=== PATIENT | female | born 1960 | race Caucasian/White ===

== ENCOUNTER 2016-10-02 15:16 | Emergency (ER) | payer OTHER ==
[~2016-10-02] VITALS: Ht 149.9 cm; Wt 90.3 kg
[~2016-10-02 15:16] MED LIST: ASPIRIN325 MG PO; BENADRYL25 MG PO; CARAFATE100 MG/ML PO; CEFTIN500 MG PO; CIPRO500 MG PO; CIPROFLOXACIN500 M1 PO; DEXAMETHASONE4 MG PO; ENDOCET 5-3251 EACH PO; ERGOCALCIF50000 UNIT PO; HYDROCODON-ACE1 EAC7 PO; IBUPROFEN400 MG PO; LIPITOR10 MG PO; Levaquin PO; Levothroid,Synthroid PO; NAPROXEN500 MG PO; NORCO 5/3251 TABLET PO; PEPCID20 MG PO; PHENTERMINE HCL15 MG PO; PRAVASTATIN SOD40 MG PO; PREDNISONE20 MG PO; PROTONIX40 MG PO; Phenergan PO; REGLAN10 MG PO; SYNTHROID112 MCG PO; SYNTHROID150 MCG PO; TOPROL XL25 MG PO; ULTRAM50 MG PO; Valium PO; ZOFRAN ODT4 MG PO
[2016-10-02 15:50] LABS: HEMATOCRIT 41.1 % (36.0-46.0); MCH 27.9 PG (29.0-34.0); MCHC 33.1 G/DL (30.0-36.0); MCV 84.4 FL (83-99); MEAN PLAT.VOLUME 9.9 uM^3 (9.5-12.4); PLATELET COUNT 259 K/uL (156-360); RBC DIS.WIDTH-CV 13.9 % (11.8-14.6); RBC DIS.WIDTH-SD 42.4 % (39-53); RED BLOOD COUNT 4.87 M/uL (3.80-5.20); WHITE BLOOD COUNT 8.8 K/uL (4.1-10.2)
[2016-10-02 16:01] LABS: CHLORIDE 108 mEq/L (99-109); POTASSIUM 4.4 mEq/L (3.7-5.4); SODIUM 138 mEq/L (136-147)
[2016-10-02 16:03] LABS: GLUCOSE 97 mg/dL (70-99)
[2016-10-02 16:04] LABS: ANION GAP 9 MEQ/L (2-14)
[2016-10-02 16:05] LABS: TOTAL BILIRUBIN 0.3 mg/dL (0.0-1.0)
[2016-10-02 16:07] LABS: ALKALINE PHOSPHATASE 137 IU/L (3-129); GFR ESTIMATE (CALCULATED) > 59 mL/min/
[2016-10-02 16:08] LABS: UREA NITROGEN (BUN) 12 mg/dL (9-23)
[2016-10-02 16:54] LABS: ADD MIUA? YES; BILIRUBIN NEGATIVE; BLOOD NEGATIVE; COLOR YELLOW ((YELLOW)); GLUCOSE (STRIP) NEGATIVE; KETONES NEGATIVE; LEUKOCYTES LARGE; NITRITE NEGATIVE; PH, URINE 7.5 (5-8); PROTEIN (STRIP) TRACE; SPECIFIC GRAVITY 1.024 (1.000-1.030); UROBILINOGEN 0.2 MG/DL (0.2-1.0)
[2016-10-02 17:18] LABS: AMORPHOUS PHOSPHATE CRYSTALS 4+; BACTERIA NONE SEEN; CASTS NONE SEEN /LPF; CRYSTALS PRESENT; EPITHELIAL CELLS 1+; MUCUS NONE SEEN; RED BLOOD CELLS 0-5 /HPF (0-5); UCUL ADDED? NO; WHITE BLOOD CELLS 40-50 /HPF (0-5)
[2016-10-02] MEDS ORDERED: CARAFATE1 GM PO (20:03)
[2016-10-02] MEDS ORDERED: ZOFRAN4 MG PO (20:03)
[2016-10-02 20:11] VITALS: BP 150/86
== END 2016-10-02 20:22 | disposition home or self-care (01) ==
LOC: EME 15:16 → EXP 15:16
DX: R10.9 Unspecified abdominal pain (principal); R11.10 Vomiting, unspecified; E03.9 Hypothyroidism, unspecified; Z85.118 Personal history of other malignant neoplasm of bronchus and lung; Z87.891 Personal history of nicotine dependence
CPT/HCPCS: 74177; 80053; 81003; 85027; 99281; 99285; J2405; J2765; J3010; J7030

== ENCOUNTER 2016-11-23 19:50 | Emergency (ER) | payer OTHER ==
[~2016-11-23] VITALS: Ht 149.9 cm; Wt 89.7 kg
[~2016-11-23 19:50] MED LIST changes: +CARAFATE1 GM PO; +ZOFRAN4 MG PO
[2016-11-23] MEDS ORDERED: FIORICET 50-301 EACH PO (23:26)
[2016-11-23 23:31] VITALS: BP 118/80
== END 2016-11-23 23:49 | disposition home or self-care (01) ==
LOC: EME 19:50
DX: S06.0X0A Concussion without loss of consciousness, initial encounter (principal); M54.2 Cervicalgia; W20.8XXA Other cause of strike by thrown, projected or falling object, initial encounter; Y99.0 Civilian activity done for income or pay; E03.9 Hypothyroidism, unspecified; Z87.891 Personal history of nicotine dependence
CPT/HCPCS: 70450; 72125; 99281; 99284

== ENCOUNTER 2017-04-25 15:42 | Emergency (ER) | payer OTHER ==
[~2017-04-25] VITALS: Ht 149.9 cm; Wt 83.6 kg
[~2017-04-25 15:42] MED LIST changes: +FIORICET 50-301 EACH PO
[2017-04-25 16:21] LABS: ADD MIUA? YES; BILIRUBIN NEGATIVE; BLOOD NEGATIVE; COLOR STRAW ((YELLOW)); GLUCOSE (STRIP) NEGATIVE; KETONES NEGATIVE; LEUKOCYTES TRACE; NITRITE NEGATIVE; PROTEIN (STRIP) NEGATIVE; SPECIFIC GRAVITY 1.009 (1.000-1.030); UROBILINOGEN 0.2 MG/DL (0.2-1.0)
[2017-04-25 16:23] LABS: BACTERIA NONE SEEN /HPF; EPITHELIAL CELLS RARE /HPF; MUCUS TRACE /LPF; RED BLOOD CELLS NONE SEEN /HPF (0-5); UCUL ADDED? NO; WHITE BLOOD CELLS 0-5 /HPF (0-5)
[2017-04-25 17:24] LABS: EOSINOPHIL (%) 1.7 % (0-5); EOSINOPHIL COUNT 0.2 K/uL (0-0.3); HEMATOCRIT 40.3 % (36.0-46.0); IMMATURE GRANULOCYTE (%) 0.5 % (0.0-0.7); IMMATURE GRANULOCYTE COUNT 0.1 K/uL; INSTRUMENT ABS NEUTROPHIL CT 5.9 K/uL; LYMPHOCYTE COUNT 2.4 K/uL (1.0-2.8); MCH 29.4 PG (29.0-34.0); MCHC 33.5 G/DL (30.0-36.0); MCV 87.8 FL (83-99); MEAN PLAT.VOLUME 10.1 uM^3 (9.5-12.4); MONOCYTE (%) 7.8 % (3-12); MONOCYTE COUNT 0.7 K/uL (0-0.8); NEUTROPHIL (%) 64.1 % (45-76); NEUTROPHIL COUNT 5.9 K/uL (1.8-6.4); PLATELET COUNT 271 K/uL (156-360); RBC DIS.WIDTH-CV 13.2 % (11.8-14.6); RBC DIS.WIDTH-SD 42.8 % (39-53); RED BLOOD COUNT 4.59 M/uL (3.80-5.20); WHITE BLOOD COUNT 9.2 K/uL (4.1-10.2)
[2017-04-25 17:34] LABS: CHLORIDE 104 mEq/L (99-109); POTASSIUM 4.3 mEq/L (3.7-5.4); SODIUM 138 mEq/L (136-147)
[2017-04-25 17:36] LABS: GLUCOSE 102 mg/dL (70-99)
[2017-04-25 17:37] LABS: ANION GAP 9 MEQ/L (2-14)
[2017-04-25 17:39] LABS: GFR ESTIMATE (CALCULATED) > 59 mL/min/
[2017-04-25 17:40] LABS: UREA NITROGEN (BUN) 16 mg/dL (9-23)
[2017-04-25] MEDS ORDERED: LISINOPRIL20 MG PO ×2 (18:07→18:08)
[2017-04-25] MEDS ORDERED: CIPRO500 MG PO (18:47)
[2017-04-25] MEDS ORDERED: FLAGYL500 MG PO (18:47)
[2017-04-25] MEDS ORDERED: NORCO 5/3251 TABLET PO (18:47)
[2017-04-25 19:00] VITALS: BP 105/75
== END 2017-04-25 19:01 | disposition home or self-care (01) ==
LOC: EME 15:42
PROVIDERS: Physician Assistant
DX: K57.32 Diverticulitis of large intestine without perforation or abscess without bleeding (principal); E03.9 Hypothyroidism, unspecified; Z85.118 Personal history of other malignant neoplasm of bronchus and lung; Z90.710 Acquired absence of both cervix and uterus; Z87.891 Personal history of nicotine dependence
CPT/HCPCS: 74177; 80048; 81003; 85025; 99281; 99284; J7040

== ENCOUNTER 2017-09-20 19:11 | Inpatient (IN) | payer OTHER ==
[~2017-09-20] VITALS: Ht 149.9 cm; Wt 90.2 kg
[~2017-09-20 19:11] MED LIST changes: +FLAGYL500 MG PO; +LISINOPRIL20 MG PO
[2017-09-20 19:43] LABS: HEMATOCRIT 42.3 % (36.0-46.0); HEMOGLOBIN 14.4 G/DL (11.9-15.5); MCH 29.3 PG (29.0-34.0); PLATELET COUNT 324 K/uL (156-360); RBC DIS.WIDTH-CV 13.2 % (11.8-14.6); RED BLOOD COUNT 4.92 M/uL (3.80-5.20); WHITE BLOOD COUNT 15.4 K/uL (4.1-10.2)
[2017-09-20 19:46] LABS: CHLORIDE 106 mEq/L (99-109); SODIUM 135 mEq/L (136-147)
[2017-09-20 19:47] LABS: GLUCOSE 166 mg/dL (70-99)
[2017-09-20 19:51] LABS: CREATININE 0.8 mg/dL (0.6-1.3); GFR ESTIMATE (CALCULATED) > 59 mL/min/
[2017-09-20 19:52] LABS: UREA NITROGEN (BUN) 11 mg/dL (9-23)
[2017-09-20 19:59] LABS: TROP-I INTERPRETATION POSITIVE
[2017-09-20] MEDS ORDERED: LISINOPRIL20 MG PO (21:36)
[2017-09-20 21:38] LABS: PTT 29.2 SEC (25-37)
[2017-09-21] VITALS (23 sets, daily range): BP systolic 90–170; BP diastolic 65–123
[2017-09-21 03:59] LABS: APPEARANCE CLEAR ((CLEAR)); BILIRUBIN NEGATIVE; BLOOD SMALL; COLOR STRAW ((YELLOW)); GLUCOSE (STRIP) NEGATIVE; KETONES NEGATIVE; LEUKOCYTES NEGATIVE; NITRITE NEGATIVE; PROTEIN (STRIP) NEGATIVE; SPECIFIC GRAVITY 1.008 (1.000-1.030); UROBILINOGEN 0.2 MG/DL (0.2-1.0)
[2017-09-21 04:33] LABS: BACTERIA NONE SEEN /HPF; EPITHELIAL CELLS RARE /HPF; MUCUS TRACE /LPF; RED BLOOD CELLS 0-5 /HPF (0-5); WHITE BLOOD CELLS 0-5 /HPF (0-5)
[2017-09-21 04:46] LABS: BASOPHIL (%) 0.2 % (0-1); EOSINOPHIL (%) 0.1 % (0-5); HEMATOCRIT 44.5 % (36.0-46.0); HEMOGLOBIN 14.8 G/DL (11.9-15.5); IMMATURE GRANULOCYTE (%) 0.8 % (0.0-0.7); LYMPHOCYTE (%) 11.9 % (15-42); LYMPHOCYTE COUNT 1.8 K/uL (1.0-2.8); MCH 29.1 PG (29.0-34.0); MCHC 33.3 G/DL (30.0-36.0); MCV 87.4 FL (83-99); MONOCYTE (%) 2.3 % (3-12); MONOCYTE COUNT 0.4 K/uL (0-0.8); NEUTROPHIL (%) 84.7 % (45-76); NEUTROPHIL COUNT 13.1 K/uL (1.8-6.4); PLATELET COUNT 333 K/uL (156-360); RBC DIS.WIDTH-CV 13.7 % (11.8-14.6); RBC DIS.WIDTH-SD 43.8 % (39-53); RED BLOOD COUNT 5.09 M/uL (3.80-5.20); WHITE BLOOD COUNT 15.4 K/uL (4.1-10.2)
[2017-09-21 05:22] LABS: ALBUMIN 4.1 g/dL (3.2-4.8); CHLORIDE 107 mEq/L (99-109); POTASSIUM 4.7 mEq/L (3.7-5.4); SODIUM 134 mEq/L (136-147)
[2017-09-21 05:25] LABS: TOTAL PROTEIN 7.4 g/dL (6.4-8.3)
[2017-09-21 05:27] LABS: TOTAL BILIRUBIN 0.5 mg/dL (0.0-1.0)
[2017-09-21 05:28] LABS: ALKALINE PHOSPHATASE 161 IU/L (3-129)
[2017-09-21 05:29] LABS: CREATININE 0.9 mg/dL (0.6-1.3); GFR ESTIMATE (CALCULATED) > 59 mL/min/
[2017-09-21 05:30] LABS: AST (GOT) 63 IU/L (2-34); GLUCOSE 256 mg/dL (70-99); UREA NITROGEN (BUN) 15 mg/dL (9-23)
[2017-09-21 05:31] LABS: ALT (GPT) 54 IU/L (3-49)
[2017-09-21 05:33] LABS: TROP-I INTERPRETATION POSITIVE
[2017-09-21 05:52] LABS: HDL CHOLESTEROL 55 MG/DL (Desirable>=50); LDL CHOLESTEROL 108 mg/dL (Desirable<100); NON-HDL CHOLESTEROL 120 mg/dL (Desirable<160); TOTAL CHOLESTEROL 175 mg/dL (Desirable<200); TRIGLYCERIDES 59 MG/DL (Normal: <150)
[2017-09-21 08:09] LABS: THYROTROPIN (TSH) 0.04 MIU/L (0.4-5.5)
[2017-09-21 10:12] LABS: HEMOGLOBIN A1c (GLYCOHEMOGLOB) 6.1 % (Below 5.7)
[2017-09-21 12:24] LABS: TROP-I INTERPRETATION POSITIVE; TROPONIN-I 5.58 ng/mL (0.0-0.30)
[2017-09-22] VITALS (19 sets, daily range): BP systolic 85–126; BP diastolic 53–90
[2017-09-22 01:28] LABS: TROP-I INTERPRETATION POSITIVE; TROPONIN-I 4.08 ng/mL (0.0-0.30)
[2017-09-22 05:05] LABS: HEMATOCRIT 37.4 % (36.0-46.0); MCH 29.2 PG (29.0-34.0); MCHC 33.7 G/DL (30.0-36.0); MCV 86.6 FL (83-99); RBC DIS.WIDTH-CV 13.8 % (11.8-14.6); RBC DIS.WIDTH-SD 43.5 % (39-53); RED BLOOD COUNT 4.32 M/uL (3.80-5.20); WHITE BLOOD COUNT 14.2 K/uL (4.1-10.2)
[2017-09-22 05:13] LABS: HEMOGLOBIN 12.6 G/DL (11.9-15.5)
[2017-09-22 05:43] LABS: PLAT.SUFFICIENCY ADEQUATE; PLATELET COUNT 222 K/uL (156-360)
[2017-09-23] VITALS (8 sets, daily range): BP systolic 96–146; BP diastolic 59–79
[2017-09-23 18:02] LABS: TROP-I INTERPRETATION POSITIVE; TROPONIN-I 1.13 ng/mL (0.0-0.30)
[2017-09-24 00:10] VITALS: BP 116/69
[2017-09-24 05:02] VITALS: BP 103/68
[2017-09-24 07:22] VITALS: BP 110/71
[2017-09-24 11:17] VITALS: BP 104/65
[2017-09-24] MEDS ORDERED: ASPIR-LOW81 MG PO (13:14)
[2017-09-24] MEDS ORDERED: LOPRESSOR25 MG PO (13:14)
[2017-09-24] MEDS ORDERED: ATORVASTATIN CA40 MG PO (13:14)
[2017-09-24] MEDS ORDERED: LISINOPRIL2.5 MG PO (13:14)
== END 2017-09-24 14:32 | disposition home or self-care (01) | DRG 280 ==
LOC: EME 19:11 → EDOF 23:19 → 4WEST 23:19 → ENRESERV 23:21 → EDOF 09-21 00:24 → ENRESERV 09-21 00:27 → 4WEST 09-21 02:12 → ENRESERV 09-22 23:28 → 4EAST 09-23 03:44
PROVIDERS: Emergency Medicine; Internal Medicine; Internal Medicine Critical Care Medicine
DX: I21.4 Non-ST elevation (NSTEMI) myocardial infarction (principal); J96.01 Acute respiratory failure with hypoxia; I51.81 Takotsubo syndrome; I10 Essential (primary) hypertension; E66.9 Obesity, unspecified; Z68.41 Body mass index [BMI] 40.0-44.9, adult; F43.23 Adjustment disorder with mixed anxiety and depressed mood; I25.110 Atherosclerotic heart disease of native coronary artery with unstable angina pectoris; R73.03 Prediabetes; E03.9 Hypothyroidism, unspecified; E78.5 Hyperlipidemia, unspecified; Z85.118 Personal history of other malignant neoplasm of bronchus and lung; Z87.891 Personal history of nicotine dependence; Z82.49 Family history of ischemic heart disease and other diseases of the circulatory system
CPT/HCPCS: 70450; 71045; 71101; 80048; 80053; 80061; 81003; 82306; 82948; 83036; 83605; 84439; 84443; 84481; 84484; 85025; 85027; 85610; 85730; 87040; 87641; 93005; 93306; 93880; 94002; 94760; 94799; 99281; 99285; C1769; C1887; J1644; J1940; J2060; J2250; J2270; J2405; J3010; J7030; J7040

== ENCOUNTER 2017-11-02 22:55 | Emergency (ER) | payer OTHER ==
[~2017-11-02] VITALS: Ht 149.9 cm; Wt 89.3 kg
[~2017-11-02 22:55] MED LIST changes: +ASPIR-LOW81 MG PO; +ATORVASTATIN CA40 MG PO; +LISINOPRIL2.5 MG PO; +LOPRESSOR25 MG PO
[2017-11-02 23:15] VITALS: BP 143/90
[2017-11-02 23:47] LABS: HEMOGLOBIN 13.5 G/DL (11.9-15.5); MCH 29.2 PG (29.0-34.0); MCHC 32.9 G/DL (30.0-36.0); MCV 88.7 FL (83-99); PLATELET COUNT 230 K/uL (156-360); RBC DIS.WIDTH-CV 13.3 % (11.8-14.6); RBC DIS.WIDTH-SD 43.4 % (39-53); RED BLOOD COUNT 4.62 M/uL (3.80-5.20); WHITE BLOOD COUNT 6.7 K/uL (4.1-10.2)
[2017-11-03] LABS: ALBUMIN 4.3 g/dL (3.2-4.8)
[2017-11-03 00:01] LABS: CHLORIDE 107 mEq/L (99-109); POTASSIUM 4.1 mEq/L (3.7-5.4); SODIUM 140 mEq/L (136-147)
[2017-11-03 00:03] LABS: GLUCOSE 94 mg/dL (70-99); TOTAL PROTEIN 7.4 g/dL (6.4-8.3)
[2017-11-03 00:05] LABS: TOTAL BILIRUBIN 0.3 mg/dL (0.0-1.0)
[2017-11-03 00:06] LABS: ALKALINE PHOSPHATASE 154 IU/L (3-129)
[2017-11-03 00:07] LABS: CREATININE 0.8 mg/dL (0.6-1.3); GFR ESTIMATE (CALCULATED) > 59 mL/min/
[2017-11-03 00:08] LABS: AST (GOT) 28 IU/L (2-34); UREA NITROGEN (BUN) 10 mg/dL (9-23)
[2017-11-03 00:09] LABS: ALT (GPT) 38 IU/L (3-49)
[2017-11-03 00:30] LABS: APPEARANCE CLEAR ((CLEAR)); BILIRUBIN NEGATIVE; BLOOD NEGATIVE; COLOR STRAW ((YELLOW)); GLUCOSE (STRIP) NEGATIVE; KETONES NEGATIVE; LEUKOCYTES SMALL; NITRITE NEGATIVE; PROTEIN (STRIP) NEGATIVE; SPECIFIC GRAVITY 1.006 (1.000-1.030); UROBILINOGEN 0.2 MG/DL (0.2-1.0)
[2017-11-03 00:39] LABS: BACTERIA NONE SEEN /HPF; EPITHELIAL CELLS RARE /HPF; MUCUS TRACE /LPF; RED BLOOD CELLS 0-5 /HPF (0-5); UCUL ADDED? YES
== END 2017-11-03 03:00 | disposition left against medical advice (07) ==
LOC: EME 22:55
DX: R11.10 Vomiting, unspecified (principal); Z53.21 Procedure and treatment not carried out due to patient leaving prior to being seen by health care provider
CPT/HCPCS: 80053; 81003; 85027; 87086

== ENCOUNTER 2017-11-24 23:29 | Emergency (ER) | payer OTHER ==
[~2017-11-24] VITALS: Ht 180.3 cm; Wt 92.1 kg
[2017-11-24 23:55] LABS: HEMATOCRIT 38.6 % (36.0-46.0); HEMOGLOBIN 13.1 G/DL (11.9-15.5); MCH 29.8 PG (29.0-34.0); MCHC 33.9 G/DL (30.0-36.0); MCV 87.7 FL (83-99); PLATELET COUNT 229 K/uL (156-360); RBC DIS.WIDTH-SD 41.7 % (39-53)
[2017-11-25 00:06] LABS: ALBUMIN 4.2 g/dL (3.2-4.8); CHLORIDE 106 mEq/L (99-109); POTASSIUM 3.8 mEq/L (3.7-5.4); SODIUM 139 mEq/L (136-147)
[2017-11-25 00:07] LABS: APPEARANCE CLEAR ((CLEAR)); BILIRUBIN NEGATIVE; BLOOD SMALL; COLOR YELLOW ((YELLOW)); GLUCOSE (STRIP) NEGATIVE; KETONES NEGATIVE; LEUKOCYTES SMALL; NITRITE NEGATIVE; PROTEIN (STRIP) NEGATIVE; SPECIFIC GRAVITY 1.016 (1.000-1.030); UROBILINOGEN 0.2 MG/DL (0.2-1.0)
[2017-11-25 00:09] LABS: GLUCOSE 117 mg/dL (70-99); TOTAL PROTEIN 7.5 g/dL (6.4-8.3)
[2017-11-25 00:10] LABS: TOTAL BILIRUBIN 0.3 mg/dL (0.0-1.0)
[2017-11-25 00:12] LABS: ALKALINE PHOSPHATASE 160 IU/L (3-129); CREATININE 0.8 mg/dL (0.6-1.3); GFR ESTIMATE (CALCULATED) > 59 mL/min/
[2017-11-25 00:13] LABS: UREA NITROGEN (BUN) 12 mg/dL (9-23)
[2017-11-25 00:14] LABS: AST (GOT) 25 IU/L (2-34)
[2017-11-25 00:15] LABS: ALT (GPT) 31 IU/L (3-49)
[2017-11-25 00:16] LABS: LIPASE 32 U/L (1.0-51.0)
[2017-11-25 00:18] LABS: BACTERIA NONE SEEN /HPF; EPITHELIAL CELLS RARE /HPF; MUCUS TRACE /LPF; RED BLOOD CELLS 0-5 /HPF (0-5); UCUL ADDED? YES
[2017-11-25] MEDS ORDERED: ZANTAC300 MG PO (03:26)
[2017-11-25] MEDS ORDERED: ZOFRAN ODT8 MG PO (03:27)
[2017-11-25 04:03] VITALS: BP 140/69
== END 2017-11-25 04:04 | disposition home or self-care (01) ==
LOC: EME 23:29
DX: K57.30 Diverticulosis of large intestine without perforation or abscess without bleeding (principal); K76.0 Fatty (change of) liver, not elsewhere classified; R03.0 Elevated blood-pressure reading, without diagnosis of hypertension; E03.9 Hypothyroidism, unspecified; I25.2 Old myocardial infarction; Z90.49 Acquired absence of other specified parts of digestive tract; Z85.118 Personal history of other malignant neoplasm of bronchus and lung; Z87.891 Personal history of nicotine dependence
CPT/HCPCS: 74177; 80053; 81003; 83605; 83690; 85027; 87086; 93005; 99281; 99284; J1885; J7030; S0028

== ENCOUNTER → 2017-12-27 | Outpatient (CLI) | payer OTHER ==
[~2017-12-27] VITALS: Ht 149.9 cm; Wt 83.9 kg
[~2017-12-27] MED LIST changes: +LO-DOSE ASPIRIN81 M2 PO; +ZANTAC300 MG PO; +ZESTRIL2.5 MG PO; +ZOFRAN ODT8 MG PO
== END | disposition home or self-care (01) ==
LOC: AMB 06:14
PROC: 0DBL8ZX Excision of Transverse Colon, Via Natural or Artificial Opening Endoscopic, Diagnostic (ICD-10-PCS; principal; 2017-12-27)
DX: Z12.11 Encounter for screening for malignant neoplasm of colon (principal); K63.5 Polyp of colon; Z86.010 Personal history of colon polyps; K64.8 Other hemorrhoids; Z85.118 Personal history of other malignant neoplasm of bronchus and lung; Z87.891 Personal history of nicotine dependence
CPT/HCPCS: 88305

== ENCOUNTER 2018-01-25 22:32 | Emergency (ER) | payer OTHER ==
[~2018-01-25] VITALS: Ht 149.9 cm; Wt 94.2 kg
[2018-01-26] MEDS ORDERED: MEDROL DOSEPAK4 MG PO (01:07)
[2018-01-26] MEDS ORDERED: ZITHROMAX Z-PA250 MG PO (01:07)
[2018-01-26] MEDS ORDERED: PROAIR HFA8.5 GM IH (01:07)
[2018-01-26 01:26] VITALS: BP 106/64
== END 2018-01-26 01:28 | disposition home or self-care (01) ==
LOC: EME 22:32
DX: J40 Bronchitis, not specified as acute or chronic (principal); I25.2 Old myocardial infarction; I10 Essential (primary) hypertension; E03.9 Hypothyroidism, unspecified; Z90.2 Acquired absence of lung [part of]; Z85.118 Personal history of other malignant neoplasm of bronchus and lung; Z79.82 Long term (current) use of aspirin; Z87.891 Personal history of nicotine dependence
CPT/HCPCS: 71046; 93005; 94640; 99281; 99284; J7512

== ENCOUNTER 2018-03-28 23:16 | Emergency (ER) | payer OTHER ==
[~2018-03-28] VITALS: Ht 149.9 cm; Wt 96.6 kg
[~2018-03-28 23:16] MED LIST changes: +MEDROL DOSEPAK4 MG PO; +PROAIR HFA8.5 GM IH; +ZITHROMAX Z-PA250 MG PO
[2018-03-29 00:24] LABS: BASOPHIL (%) 0.8 % (0-1); BASOPHIL COUNT 0.1 K/uL (0-0.1); EOSINOPHIL (%) 1.4 % (0-5); EOSINOPHIL COUNT 0.1 K/uL (0-0.3); HEMATOCRIT 38.4 % (36.0-46.0); HEMOGLOBIN 13.2 G/DL (11.9-15.5); IMMATURE GRANULOCYTE (%) 0.5 % (0.0-0.7); LYMPHOCYTE (%) 23.4 % (15-42); LYMPHOCYTE COUNT 1.8 K/uL (1.0-2.8); MCH 30.1 PG (29.0-34.0); MCHC 34.4 G/DL (30.0-36.0); MCV 87.7 FL (83-99); MONOCYTE (%) 3.8 % (3-12); MONOCYTE COUNT 0.3 K/uL (0-0.8); NEUTROPHIL (%) 70.1 % (45-76); NEUTROPHIL COUNT 5.5 K/uL (1.8-6.4); PLATELET COUNT 260 K/uL (156-360); RBC DIS.WIDTH-CV 13.6 % (11.8-14.6); RBC DIS.WIDTH-SD 44.2 % (39-53); RED BLOOD COUNT 4.38 M/uL (3.80-5.20); WHITE BLOOD COUNT 7.9 K/uL (4.1-10.2)
[2018-03-29 00:34] LABS: ALBUMIN 4.2 g/dL (3.2-4.8); CHLORIDE 106 mEq/L (99-109); POTASSIUM 4.4 mEq/L (3.7-5.4); SODIUM 136 mEq/L (136-147)
[2018-03-29 00:36] LABS: GLUCOSE 148 mg/dL (70-99)
[2018-03-29 00:37] LABS: TOTAL PROTEIN 7.3 g/dL (6.4-8.3)
[2018-03-29 00:38] LABS: TOTAL BILIRUBIN 0.4 mg/dL (0.0-1.0)
[2018-03-29 00:40] LABS: ALKALINE PHOSPHATASE 164 IU/L (3-129); CREATININE 0.8 mg/dL (0.6-1.3); GFR ESTIMATE (CALCULATED) > 59 mL/min/
[2018-03-29 00:41] LABS: UREA NITROGEN (BUN) 11 mg/dL (9-23)
[2018-03-29 00:42] LABS: AST (GOT) 34 IU/L (2-34)
[2018-03-29 00:43] LABS: ALT (GPT) 45 IU/L (3-49); LIPASE 24 U/L (1.0-51.0)
[2018-03-29 00:44] LABS: TROP-I INTERPRETATION NEGATIVE; TROPONIN-I < 0.01 ng/mL (0.0-0.30)
[2018-03-29 00:54] LABS: APPEARANCE CLEAR ((CLEAR)); BILIRUBIN NEGATIVE; BLOOD NEGATIVE; COLOR YELLOW ((YELLOW)); GLUCOSE (STRIP) NEGATIVE; KETONES NEGATIVE; LEUKOCYTES NEGATIVE; NITRITE NEGATIVE; PROTEIN (STRIP) NEGATIVE; SPECIFIC GRAVITY 1.015 (1.000-1.030); UCUL ADDED? NO; UROBILINOGEN 0.2 MG/DL (0.2-1.0)
[2018-03-29 04:00] VITALS: BP 104/59
[2018-03-29] MEDS ORDERED: ZOFRAN4 MG PO (04:24)
== END 2018-03-29 05:10 | disposition home or self-care (01) ==
LOC: EME 23:16
PROVIDERS: Emergency Medicine
DX: R11.2 Nausea with vomiting, unspecified (principal); R50.9 Fever, unspecified; E03.9 Hypothyroidism, unspecified; I25.2 Old myocardial infarction; Z87.891 Personal history of nicotine dependence; Z85.118 Personal history of other malignant neoplasm of bronchus and lung; Z90.2 Acquired absence of lung [part of]; Z90.49 Acquired absence of other specified parts of digestive tract; Z79.82 Long term (current) use of aspirin
CPT/HCPCS: 71046; 74177; 80053; 81003; 83605; 83690; 84484; 85025; 93005; J0360; J1200; J2765; J7030